=== PATIENT | male | born 1975 | race Caucasian/White ===

== ENCOUNTER 2018-01-04 10:26 | Emergency (ER) | payer MEDICAID ==
[2018-01-04] MEDS ORDERED: KETOROLAC 60 MG/2 ML VIAL IVP STA (10:39)
[2018-01-04] MEDS ORDERED: HYDROmorphone 1 MG/ML CARPUJECT IVP STA (10:39)
[2018-01-04] MEDS ORDERED: LACTATED RINGERS IV STA (10:44)
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
[2018-01-04] MEDS ORDERED: TETANUS/DIPHTHERIA/PERTUSSIS 0.5 ML SYRINGE IM ONE (10:49)
[2018-01-04] MEDS ORDERED: HYDROmorphone 2 MG/ML VIAL ONE (11:13)
[2018-01-04 11:21] LABS: BASOPHILS # (AUTO) 0.1 10^3/uL (0.0-0.1); EOSINOPHILS # (AUTO) 0.1 10^3/uL (0.0-0.7); EOSINOPHILS % (AUTO) 1.1 %; LYMPHOCYTES # (AUTO) 2.5 10^3/uL (1.5-3.5); LYMPHOCYTES % (AUTO) 22.9 %; MEAN CORPUSCULAR HEMOGLOBIN 31.5 pg (27.0-31.0); MEAN CORPUSCULAR HGB CONC 34.3 g/dL (32.0-36.0); MONOCYTES # (AUTO) 0.9 10^3/uL (0.0-1.0); MONOCYTES % (AUTO) 8.3 %; NEUTROPHILS # (AUTO) 7.3 10^3/uL (1.5-6.6); NEUTROPHILS % (AUTO) 66.7 %; PLT - PLATELET COUNT 272 10^3/uL (130-450); RED BLOOD COUNT 4.76 10^6/uL (4.70-6.10); WHITE BLOOD COUNT 10.9 x10^3/uL (4.8-10.8)
[2018-01-04 11:47] LABS: CALCIUM 9.7 mg/dL (8.5-10.3)
[2018-01-04 11:57] VITALS: BP 148/94
== END 2018-01-04 11:45 | disposition short-term general hospital (02) ==
LOC: ED 10:26
DX: T20.12XA Burn of first degree of lip(s), initial encounter (principal); T21.11XA Burn of first degree of chest wall, initial encounter; T21.34XA Burn of third degree of lower back, initial encounter; T22.30XA Burn of third degree of shoulder and upper limb, except wrist and hand, unspecified site, initial encounter; T24.301A Burn of third degree of unspecified site of right lower limb, except ankle and foot, initial encounter; T31.33 Burns involving 30-39% of body surface with 30-39% third degree burns; X08.8XXA Exposure to other specified smoke, fire and flames, initial encounter; W40.1XXA Explosion of explosive gases, initial encounter; Y92.89 Other specified places as the place of occurrence of the external cause; Z23 Encounter for immunization
CPT/HCPCS: 36415; 51702; 80048; 82550; 85025; 90715; 96361; 96374; 99284; J1170; J7120; 99283